=== PATIENT | male | born 1950 | race American Indian/Alaskan Native ===

== ENCOUNTER 2016-06-30 14:33 | Emergency (ER) | payer MEDICARE ==
[2016-06-30 17:17] LABS: Bilirubin,Urine NEG (Negative); Blood,Urine MOD (Negative); Ketones,Urine NEG (Negative); Leukocyte Esterase,Urine SM (Negative); Mucus,Urine FEW /HPF; Nitrite,Urine NEG (Negative); Protein,Urine <15 mg/dL mg/dL (Negative); Urobilinogen,Urine < 2.0 mg/dL (<2.0)
--- NOTE | 2016-06-30 17:59 | Emergency Department Report ---
ED Male HPI - General Chief complaint: Urogenital-Male Stated complaint: BP HIGH Time Seen by Provider: 06/30/16 17:20 Source: patient Mode of arrival: Ambulatory Limitations: No Limitations - History of Present Illness Initial comments: This is a 66-year-old male complaining of painful urination for 2 months. Patient now states he has flank pain. Nontoxic in appearance. Patient denies any blood in urine, discharge, any sores, or lesions. Patient is a class b truck driver. Denies any new sexual partners. Patient states normal urine odor. MD Complaint: dysuria Onset/Timin -: Gradual, month(s) Location: right flank, left flank Radiation: none Severity: mild Severity scale (0 -10): 4 Quality: aching Consistency: intermittent Improves with: other (patient unaware) Worsens with: other (it comes and goes unaware what makes it worse) denies other symptoms - Related Data Previous Rx's Medication Instructions Recorded Last Taken Type Phenazopyridine [Pyridium] 200 mg PO BID #15 tab 06/30/16 Unknown Rx Sulfamethoxazole/Trimethoprim 1 each PO BID #14 tablet 06/30/16 Unknown Rx [Bactrim DS TAB] Allergies Allergy/AdvReac Type Severity Reaction Status Date / Time No Known Allergies Allergy Unverified 06/30/16 15:37 ED Review of Systems ROS: Stated complaint: BP HIGH Other details as noted in HPI Comment: All other systems reviewed and negative Respiratory: no symptoms reported. denies: cough, orthopnea, shortness of breath, SOB with exertion, wheezing Cardiovascular: denies: chest pain, palpitations, edema, syncope Endocrine: no symptoms reported Gastrointestinal: denies: abdominal pain, nausea, vomiting, diarrhea, constipation Genitourinary: dysuria. denies: urgency, frequency, hematuria, discharge, testicular pain, testicular mass Musculoskeletal: as per HPI. denies: joint swelling, arthralgia, myalgia Skin: denies: rash, lesions Neurological: denies: headache, weakness, numbness ED Past Medical Hx - Past Medical History Previous Medical History?: Yes Hx Diabetes: Yes - Surgical History Past Surgical History?: No - Social History Smoking Status: Never Smoker Substance Use Type: Alcohol - Medications Home Medications: Home Medications Medication Instructions Recorded Confirmed Last Taken Type Phenazopyridine [Pyridium] 200 mg PO BID #15 tab 06/30/16 Unknown Rx Sulfamethoxazole/Trimethoprim 1 each PO BID #14 tablet 06/30/16 Unknown Rx [Bactrim DS TAB] ED Physical Exam - General Limitations: No Limitations General appearance: alert, in no apparent distress - Head Head exam: Present: atraumatic, normocephalic - Respiratory Respiratory exam: Present: normal lung sounds bilaterally. Absent: respiratory distress, wheezes, rales - Cardiovascular Cardiovascular Exam: Present: regular rate, normal rhythm. Absent: systolic murmur, diastolic murmur, rubs, gallop - GI/Abdominal GI/Abdominal exam: Present: soft, normal bowel sounds. Absent: distended, tenderness, rebound, rigid - exam: Present: normal inspection, other. Absent: testicular tenderness, urethral discharge, scrotal swelling External exam: Present: normal external exam. Absent: erythema, swelling, lesions, lacerations, ecchymosis, bleeding - Extremities Exam Extremities exam: Present: normal inspection, full ROM, normal capillary refill - Back Exam Back exam: Present: normal inspection, full ROM. Absent: tenderness, CVA tenderness (R), CVA tenderness (L), muscle spasm - Neurological Exam Neurological exam: Present: alert, oriented X3, normal gait ED Course Vital Signs 06/30/16 15:30 Temperature 97.9 F Pulse Rate 61 Respiratory 20 Rate Blood Pressure 181/94 O2 Sat by Pulse 98 Oximetry ED Medical Decision Making - Lab Data Result diagrams: 06/30/16 18:14 06/30/16 18:14 Lab Results 06/30/16 06/30/16 Range/Units 15:26 15:38 POC Glucose 93 (70-105) Urine Color Yellow (Yellow) Urine Turbidity Clear (Clear) Urine pH 5.0 (5.0-7.0) Ur Specific [place] 1.015 (1.003-1.030) Urine Protein <15 mg/dl (Negative) mg/dL Urine Glucose (UA) Neg (Negative) mg/dL Urine Ketones Neg (Negative) mg/dL Urine Blood Mod (Negative) Urine Nitrite Neg (Negative) Urine Bilirubin Neg (Negative) Urine Urobilinogen < 2.0 (<2.0) mg/dL Ur Leukocyte Esterase Sm (Negative) Urine WBC (Auto) 6.0 (0.0-6.0) /HPF Urine RBC (Auto) 4.0 (0.0-6.0) /HPF U Epithel Cells (Auto) 2.0 (0-13.0) /HPF Urine Mucus Few /HPF Vital Signs 06/30/16 15:30 Temperature 97.9 F Pulse Rate 61 Respiratory 20 Rate Blood Pressure 181/94 O2 Sat by Pulse 98 Oximetry Vital Signs 06/30/16 06/30/16 15:30 19:37 Temperature 97.9 F Pulse Rate 61 53 L Respiratory 20 17 Rate Blood Pressure 181/94 Blood Pressure 173/81 [Left] O2 Sat by Pulse 98 Oximetry - Medical Decision Making ED course: This is a 66-year-old male came in for dysuria for 2 months. Patient denies any blood, discharge, sores, lesions, cysts and new sexual partner, denies CVA tenderness. Patient does not seem toxic or ill appearance. 1-CT scan results from Dr. Warner Domingo shows no acute obstructive change. Intermerminate to exclude bladder wall thickening posteriorly vs. volume averaging of the prostate. 2- Ordered Clonidine 0.1 mg PO. 3- Sent home on Bactrim DS 4- Dr. Santamaria aware of patient and the plan/discharge 5- instructed the patient to see urologist in 2-3 days. 6-instructed the patient is increase fluid intake. 7-if symptoms change or worsening contact emergency room. 8-B/P rechecked at 173/81, improved. 9- instruct the patient to continue taking blood pressure medication and diabetes medication that was prescribed a primary care doctor. - Differential Diagnosis Nephrolithiasis, UTI Critical care attestation.: If time is entered above; I have spent that time in minutes in the direct care of this critically ill patient, excluding procedure time. ED Disposition Clinical Impression: UTI (urinary tract infection), Dysuria, Cystitis Disposition: DISCHARGED TO HOME OR SELFCARE Is pt being admited?: No Does the pt Need Aspirin: No Condition: Stable Instructions: Dysuria (ED), Urinary Tract Infection in Men (ED), Flank Pain (ED ) Additional Instructions: Please see urologist in 2-3 days. If symptoms change or worsen please come back to emergency room. Instructed the patient to please continue taking blood pressure medication. Prescriptions: Phenazopyridine [Pyridium] 200 mg PO BID #15 tab Sulfamethoxazole/Trimethoprim [Bactrim DS TAB] 1 each PO BID #14 tablet Referrals: PRIMARY CARE, [Primary Care Provider] - 2-3 Days [facility] [Outside] - 3-5 Days [facility] [Outside] - 3-5 Days STEFAN WHATLEY MD [Staff Physician] - 2-3 Days Forms: Work/School Release Form(ED)
[2016-06-30 18:40] LABS: Hematocrit 42.9 % (35.5-45.6); Mean Corpuscular HGB Conc 35 % (32-34); Mean Corpuscular Hemoglobin 33 pg (28-32); Mean Corpuscular Volume 94 fl (84-94); Platelet Count 242 K/mm3 (140-440); Red Blood Count 4.56 M/mm3 (3.65-5.03); Red Cell Distribution Width 13.6 % (13.2-15.2)
--- NOTE | 2016-06-30 18:58 | Cat Scan Report ---
FINAL REPORT PROCEDURE: CT ABDOMEN PELVIS WO CON TECHNIQUE: Computerized axial tomography of the abdomen and pelvis was performed without intravenous contrast. This study is performed without intravascular contrast material and its sensitivity for abdominal and pelvic pathology, including neoplasms, inflammation, abscess, free fluid, thrombosis, arterial dissection and infarction, is reduced compared with a contrast enhanced study. HISTORY: flank pain ? stone COMPARISON: No prior studies are available for comparison. FINDINGS: Visualized lower thorax: Lung base COPD. Liver: Normal size and attenuation. Spleen: Normal size and attenuation. Gallbladder and biliary system: Normal. Pancreas: Normal. Adrenals: Normal. Kidneys: Suspect tiny sub millimeter calculi left mid kidney coronal 110 and 106. Sub millimeter calcification right mid to lower kidney axial 86. No significant sized stones are definitive. No obstructive uropathy identified. GI tract: No oral contrast. Mild stool volume. Scattered diverticulosis. Normal caliber appendix. No definitive evidence of acute bowel disease on limited study without oral contrast. No specific evidence of acute diverticulitis left flank area.. Lymph nodes and mesentery: Normal. Vasculature: Calcified atherosclerosis. Bladder: Indeterminate to exclude bladder wall thickening posteriorly versus volume averaging of the prostate. Followup may be warranted.. Reproductive organs: Heterogeneous prostate gland with calcifications present. Prostate 4.6 x 3.9 centimeters.. Peritoneum: No free fluid. Musculoskeletal structures: No significant abnormality. Other: Moderate disc bulging L4-5 L5-S1. Moderate degenerative changes of the hips. 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 Sacroiliitis. Focal soft tissue thickening stranding right lower anterior abdomen may be injection site or focal cellulitis axial 145. No ring enhancing abscess seen. IMPRESSION: No acute obstructive change Details above Followup advised
[2016-06-30 19:00] LABS: Anion Gap 14 mmol/L; BUN/Creatinine Ratio 11.81; Blood Urea Nitrogen 13 mg/dL (9-20); Calcium 9.1 mg/dL (8.4-10.2); Carbon Dioxide 25 mmol/L (22-30); Chloride 98.2 mmol/L (98-107); Creatine Kinase 279 units/L (55-170); Glucose 130 mg/dL (75-100); Potassium 3.5 mmol/L (3.6-5.0); Sodium 134 mmol/L (137-145)
[2016-06-30] MEDS ORDERED: CATAPRES PO ONE (19:00)
[2016-06-30 19:38] VITALS: BP 173/81
== END 2016-06-30 20:08 | disposition home or self-care (01) ==
LOC: ED 14:33
DX: N39.0 Urinary tract infection, site not specified (principal); N30.90 Cystitis, unspecified without hematuria; E11.9 Type 2 diabetes mellitus without complications
CPT/HCPCS: 36415; 74176; 80048; 81001; 82550; 82962; 85027; 99284

== ENCOUNTER 2017-03-10 13:58 | Emergency (ER) | payer MEDICARE ==
--- NOTE | 2017-03-10 16:29 | Emergency Department Report ---
ED General Adult HPI - General Chief complaint: Upper Respiratory Infection Stated complaint: cold symptoms Time Seen by Provider: 03/10/17 16:16 Source: patient Mode of arrival: Ambulatory Limitations: No Limitations - History of Present Illness Initial comments: Chief complaint I think I have the flu Cough and cold with facial fullness with question of greenish rhinorrhea denied chest pain denies abdominal pain denies calf pain or swelling No body aches no fever no myalgias no stiff neck no headache Past medical history significant for diabetes and history of hypertension Social history he does not drug use Complete review of systems is otherwise negative review of systems no stiff neck no headache no focal neuro complaints no rash no photophobia he does have a sore throat was facial fullness with some greenish rhinorrhea no chest pain or shortness of breath pain or swelling physical exam Vital signs were stable blood pressure was 161/71 room air sat was normal he was afebrile and nontoxic in no acute distress HEENT throat had mild erythema without exudate no stridor Maxillary sinus tenderness Neck supple Chest clear station without retractions Cardiac was S1-S2 without murmur gallop or rub pulses equal bilaterally Abdomen soft nontender without rebound or guarding Extremities without close os edema and no Homans sign with good capillary refill ED course symptoms are consistent with sinusitis and bronchitis patient initially seemed to have some flulike symptoms but he S he has no myalgia he has no fever we will discharge with Lorene box with close outpatient follow-up Clinical impression is bronchitis #1 #2 sinusitis Discharge he is coming discharged in about excuse see his regular doctor in 2 days and return if new oralarming symptoms - Related Data Previous Rx's Medication Instructions Recorded Last Taken Type Phenazopyridine [Pyridium] 200 mg PO BID #15 tab 06/30/16 Unknown Rx ALBUTEROL Inhaler [ProAir HFA 1 puff IH QID PRN 7 Days inha 03/10/17 Unknown Rx Inhaler] Doxycycline [Vibramycin CAP] 100 mg PO Q12HR #14 capsule 03/10/17 Unknown Rx guaiFENesin/CODEINE [Robitussin AC] 5 ml PO QID PRN #120 oral.liqd 03/10/17 Unknown Rx Allergies Allergy/AdvReac Type Severity Reaction Status Date / Time No Known Allergies Allergy Unverified 06/30/16 15:37 ED Review of Systems ROS: Stated complaint: cold symptoms Other details as noted in HPI ED Past Medical Hx - Past Medical History Hx Hypertension: Yes Hx Diabetes: Yes - Social History Smoking Status: Never Smoker Substance Use Type: Alcohol - Medications Home Medications: Home Medications Medication Instructions Recorded Confirmed Last Taken Type Phenazopyridine [Pyridium] 200 mg PO BID #15 tab 06/30/16 Unknown Rx ALBUTEROL Inhaler [ProAir HFA 1 puff IH QID PRN 7 Days inha 03/10/17 Unknown Rx Inhaler] Doxycycline [Vibramycin CAP] 100 mg PO Q12HR #14 capsule 03/10/17 Unknown Rx guaiFENesin/CODEINE [Robitussin AC] 5 ml PO QID PRN #120 oral.liqd 03/10/17 Unknown Rx ED Physical Exam - General Limitations: No Limitations ED Course Vital Signs 03/10/17 14:24 Temperature 98.3 F Pulse Rate 64 Respiratory 22 Rate Blood Pressure 161/71 O2 Sat by Pulse 97 Oximetry Critical care attestation.: If time is entered above; I have spent that time in minutes in the direct care of this critically ill patient, excluding procedure time. ED Disposition Clinical Impression: Bronchitis, Sinusitis Disposition: DC-01 TO HOME OR SELFCARE Is pt being admited?: No Condition: Stable Instructions: Chronic Bronchitis (ED) Additional Instructions: sinusitis Prescriptions: ALBUTEROL Inhaler [ProAir HFA Inhaler] 1 puff IH QID PRN 7 Days inha PRN Reason: congestoin Doxycycline [Vibramycin CAP] 100 mg PO Q12HR #14 capsule guaiFENesin/CODEINE [Robitussin AC] 5 ml PO QID PRN #120 oral.liqd PRN Reason: cough Referrals: MINDY ZARATE MD [Primary Care Provider] - 3-5 Days Print Language: YAKUT
[2017-03-10 17:27] VITALS: BP 166/85
== END 2017-03-10 17:12 | disposition home or self-care (01) ==
LOC: ED 13:58
DX: J40 Bronchitis, not specified as acute or chronic (principal); J32.9 Chronic sinusitis, unspecified; I10 Essential (primary) hypertension; E11.9 Type 2 diabetes mellitus without complications
CPT/HCPCS: 99282

== ENCOUNTER 2017-03-13 15:18 | Emergency (ER) | payer MEDICARE ==
[2017-03-13 15:25] VITALS: BP 142/68
[2017-03-13] MEDS ORDERED: TORADOL IM ONE (17:59)
--- NOTE | 2017-03-13 18:24 | Emergency Department Report ---
ED Headache HPI - General Chief Complaint: Headache Stated Complaint: HEADACHE Time Seen by Provider: 03/13/17 17:26 - History of Present Illness Initial Comments: This is a 67-year-old male nontoxic, well nourished in appearance, no acute signs of distress presents to the ED with c/o of worsening headache. Patient stated he was here a couple of days ago and was diagnosed with sinusitis and received Doxy with no relief. Patient stated headache has not improved and is getting worse. Patient denies any trauma to the region. Patient describes headache in the frontal sinus region. Patient denies worst headache or thunderclap headache. Patient describes headache as gradual onset. Patient denies any nausea, vomiting, chest pain, shortness of breathe, fever, chills, stiff neck, back pain, abdominal pain, numbness or tingling. Denies pain radiation. Patient denies any allergies. PMH includes HTN and DM. Timing/Duration: increasing Quality: mild Head Injury Location: frontal Recent Head Trauma: no recent headache/trauma Associated Symptoms: denies symptoms. denies: confusion, fatigue, facial pain, fever/chills, flushing, loss of consciousness, nausea/vomiting, nasal congestion , nasal drainage, numbness in legs/feet, rash, seizures, sinus infection, stiff neck, vision changes, weakness Allergies/Adverse Reactions: Allergies No Known Allergies Allergy (Unverified 06/30/16 15:37) Home Medications: Ambulatory Orders Phenazopyridine [Pyridium] 200 mg PO BID #15 tab 06/30/16 ALBUTEROL Inhaler [ProAir HFA Inhaler] 1 puff IH QID PRN 7 Days inha 03/10/17 Doxycycline [Vibramycin CAP] 100 mg PO Q12HR #14 capsule 03/10/17 guaiFENesin/CODEINE [Robitussin AC] 5 ml PO QID PRN #120 oral.liqd 03/10/17 Amoxicillin/K Clav Tab [Augmentin 875 mg] 1 tab PO Q12HR #20 tab 03/13/17 Butalb/Acetamin/Caff 50-325-40 [Fioricet] 1 tab PO Q6HR PRN #30 tab 03/13/17 ED Review of Systems ROS: Stated complaint: HEADACHE Other details as noted in HPI Constitutional: denies: chills, fever Eyes: denies: eye pain, eye discharge, vision change ENT: denies: ear pain, throat pain Respiratory: denies: cough, shortness of breath, wheezing Cardiovascular: denies: chest pain, palpitations Endocrine: no symptoms reported Gastrointestinal: denies: abdominal pain, nausea, diarrhea Genitourinary: denies: urgency, dysuria Musculoskeletal: denies: back pain, joint swelling, arthralgia Skin: denies: rash, lesions Neurological: headache. denies: weakness, paresthesias Psychiatric: denies: anxiety, depression Hematological/Lymphatic: denies: easy bleeding, easy bruising ED Past Medical Hx - Past Medical History Previous Medical History?: Yes Hx Hypertension: Yes Hx Diabetes: Yes - Surgical History Past Surgical History?: No - Social History Smoking Status: Former Smoker Substance Use Type: Alcohol, Prescribed - Medications Home Medications: Home Medications Medication Instructions Recorded Confirmed Last Taken Type Phenazopyridine [Pyridium] 200 mg PO BID #15 tab 06/30/16 Unknown Rx ALBUTEROL Inhaler [ProAir HFA 1 puff IH QID PRN 7 Days inha 03/10/17 Unknown Rx Inhaler] Doxycycline [Vibramycin CAP] 100 mg PO Q12HR #14 capsule 03/10/17 Unknown Rx guaiFENesin/CODEINE [Robitussin AC] 5 ml PO QID PRN #120 oral.liqd 03/10/17 Unknown Rx Amoxicillin/K Clav Tab [Augmentin 1 tab PO Q12HR #20 tab 03/13/17 Unknown Rx 875 mg] Butalb/Acetamin/Caff 50-325-40 1 tab PO Q6HR PRN #30 tab 03/13/17 Unknown Rx [Fioricet] ED Physical Exam - General Limitations: No Limitations General appearance: alert, in no apparent distress - Head Head exam: Present: atraumatic, normocephalic, normal inspection - Eye Eye exam: Present: normal appearance, PERRL, EOMI. Absent: scleral icterus, conjunctival injection, nystagmus, periorbital swelling, periorbital tenderness Pupils: Present: normal accommodation - ENT ENT exam: Present: normal exam, normal orophraynx, mucous membranes moist, TM's normal bilaterally, normal external ear exam - Neck Neck exam: Present: normal inspection, full ROM. Absent: tenderness, meningismus, lymphadenopathy, thyromegaly - Respiratory Respiratory exam: Present: normal lung sounds bilaterally. Absent: respiratory distress, wheezes, rales, rhonchi, stridor, chest wall tenderness, accessory muscle use, decreased breath sounds, prolonged expiratory - Cardiovascular Cardiovascular Exam: Present: regular rate, normal rhythm, normal heart sounds. Absent: bradycardia, tachycardia, irregular rhythm, systolic murmur, diastolic murmur, rubs, gallop - GI/Abdominal GI/Abdominal exam: Present: soft, normal bowel sounds. Absent: distended, tenderness, guarding, rebound, rigid, diminished bowel sounds - Rectal Rectal exam: Present: deferred - Extremities Exam Extremities exam: Present: normal inspection, full ROM, normal capillary refill. Absent: tenderness, pedal edema, joint swelling, calf tenderness - Back Exam Back exam: Present: normal inspection, full ROM. Absent: tenderness, CVA tenderness (R), CVA tenderness (L), muscle spasm, paraspinal tenderness, vertebral tenderness, rash noted - Neurological Exam Neurological exam: Present: alert, oriented X3, CN II-XII intact, normal gait, reflexes normal - Expanded Neurological Exam Expanded Patient oriented to: Present: person, place, time Cranial nerves: EOM's Intact: Normal, Gag Reflex: Normal, Tongue Deviation: Normal, Nystagmus: Normal, Facial Sensation: Normal, Facial Palsy with Forehead Movement: Normal, Facial Palsy without Forehead Movement: Normal Cerebellar function: Finger to Nose: Normal, Heel to [place]: Normal, Romberg: Normal Upper motor neuron: Seferino Neglect: Normal, Pronator Drift: Normal, Babinski Sign : Normal, Sensory Extinction: Normal Sensory exam: Upper Extremity Light Touch: Normal, Upper Extremity Pin Prick: Normal, Upper Extremity Temperature: Normal, UE 2 Point Discrimination: Normal, Lower Extremity Light Touch: Normal, Lower Extremity Pin Prick: Normal, Lower Extremity Temperature: Normal, LE 2 Point Discrimination: Normal Motor strength exam: RUE: 5, LUE: 5, RLE: 5, LLE: 5 DTR: bicep (R): 2+, bicep (L): 2+, tricep (R): 2+, tricep (L): 2+, knee (R): 2+ , knee (L): 2+, ankle (R): 2+, ankle (L): 2+ Best Eye Response (Jordy): (4) open spontaneously Best Motor Response (Jordy): (6) obeys commands Best Verbal Response ([place]): (5) oriented [place] Total: 15 - Psychiatric Psychiatric exam: Present: normal affect, normal mood - Skin Skin exam: Present: warm, dry, intact, normal color. Absent: rash ED Course Vital Signs 03/13/17 03/13/17 03/13/17 15:22 17:42 18:07 Temperature 98.1 F Pulse Rate 82 Respiratory 18 18 18 Rate Blood Pressure 142/68 O2 Sat by Pulse 97 Oximetry - Reevaluation(s) Reevaluation #1: 03/13/17 18:29 Patient is speaking in full sentences with no signs of distress noted. ED Medical Decision Making - Medical Decision Making This is a 67-year-old male that presents with sinusitis headache. Patient is stable and was examined by me. Due to patient stating symptoms of headache is worsening, a CT of head/brain has been obtained and dictated by radiologist with normal exam. Patient received Toradol in the ED which patient stated symptoms is improving and subsided. Patient was instructed to discontinue Doxy and patient was prescribed Augmentin. Patient received Fioricet at discharge. Patient was instructed Follow-up with a primary care doctor in 3-5 days or if symptoms worsen and continue return to emergency room as soon as possible. At time time of discharge, the patient does not seem toxic or ill in appearance. No acute signs of distress noted. Patient agrees to discharge treatment plan of care. No further questions noted by the patient. Critical care attestation.: If time is entered above; I have spent that time in minutes in the direct care of this critically ill patient, excluding procedure time. ED Disposition Clinical Impression: Sinusitis Qualifiers: Sinusitis location: frontal Chronicity: unspecified Qualified Code(s): J32.1 - Chronic frontal sinusitis Headache Qualifiers: Headache type: unspecified Headache chronicity pattern: unspecified pattern Intractability: not intractable Qualified Code(s): R51 - Headache Disposition: DC-01 TO HOME OR SELFCARE Is pt being admited?: No Does the pt Need Aspirin: No Condition: Stable Instructions: Butalbital/Aspirin/Caffeine (By mouth), Amoxicillin/Clavulanate Potassium (By mouth), Sinusitis (ED), Acute Headache (ED) Additional Instructions: Follow-up with a primary care doctor in 3-5 days or if symptoms worsen and continue return to emergency room as soon as possible. Discontinue taking doxycycline, and start taking Augmentin as prescribed. Prescriptions: Amoxicillin/K Clav Tab [Augmentin 875 mg] 1 tab PO Q12HR #20 tab Butalb/Acetamin/Caff 50-325-40 [Fioricet] 1 tab PO Q6HR PRN #30 tab PRN Reason: Headache Referrals: PRIMARY CAREMD [Primary Care Provider] - 3-5 Days MAYRA BEDOYA MD [Staff Physician] - 3-5 Days [facility] [Outside] - 3-5 Days [facility] [Outside] - 3-5 Days Forms: Work/School Release Form(ED)
--- NOTE | 2017-03-13 19:36 | Cat Scan Report ---
FINAL REPORT EXAM: CT HEAD/BRAIN WO CON HISTORY: headache TECHNIQUE: CT of the head was performed without intravenous contrast. PRIORS: None. FINDINGS: The ventricles are normal in shape and position. The ventricles are nondilated. No intracranial hemorrhage, mass, mass effect, midline shift or evidence of acute ischemic infarct. The basilar cisterns are patent. Mucosal thickening of the maxillary and ethmoid sinuses is likely congestive or inflammatory. The extracranial soft tissues demonstrate no abnormality. The calvarium is intact. An old right medial orbital wall deformity is seen. The mastoid air cells are clear. IMPRESSION: 1. No acute intracranial abnormality. 2. Mucosal thickening of the maxillary and ethmoid sinuses is likely congestive or inflammatory.
== END 2017-03-13 19:50 | disposition home or self-care (01) ==
LOC: ED 15:18
DX: J32.1 Chronic frontal sinusitis (principal); I10 Essential (primary) hypertension; E11.9 Type 2 diabetes mellitus without complications; Z87.891 Personal history of nicotine dependence
CPT/HCPCS: 70450; 96372; 99283; J1885

== ENCOUNTER 2017-05-25 16:48 | Emergency (ER) | payer MEDICARE ==
[2017-05-25 17:05] VITALS: BP 138/55
--- NOTE | 2017-05-25 19:51 | Emergency Department Report ---
Blank Doc - Documentation Documentation: Patient is a 67-year-old [place] male past history of diabetes hypertension is complaining of right hip pain. Patient states he gets a sharp pain in his hip 7 the lab when he walks. Patient denies any trauma. Patient will have x-ray of the hip rule out joint effusiOn
[2017-05-25] MEDS ORDERED: TORADOL IM ONE (20:02)
--- NOTE | 2017-05-25 21:11 | Emergency Department Report ---
ED Extremity Problem HPI - General Chief complaint: Extremity Problem,Nontraumatic Stated complaint: RIGHT HIP PAIN Time Seen by Provider: 05/25/17 19:49 Source: patient Mode of arrival: Ambulatory Limitations: No Limitations - History of Present Illness Initial comments: Patient is a 67-year-old -Swedish male whose presenting with right hip pain for the past several days. Patient denies any trauma. Patient states he has difficulty walking and is walking with a left. Patient states that it's worse when he is standing and when he is trying to sit up better with rest. Patient denies any cough cold congestion and fevers chills nausea vomiting diarrhea. MD Complaint: extremity pain Location: right, lower extremity Severity scale (0 -10): 4 Quality: aching Consistency: constant - Related Data Previous Rx's Medication Instructions Recorded Last Taken Type Phenazopyridine [Pyridium] 200 mg PO BID #15 tab 06/30/16 Unknown Rx ALBUTEROL Inhaler [ProAir HFA 1 puff IH QID PRN 7 Days inha 03/10/17 Unknown Rx Inhaler] Doxycycline [Vibramycin CAP] 100 mg PO Q12HR #14 capsule 03/10/17 Unknown Rx guaiFENesin/CODEINE [Robitussin AC] 5 ml PO QID PRN #120 oral.liqd 03/10/17 Unknown Rx Amoxicillin/K Clav Tab [Augmentin 1 tab PO Q12HR #20 tab 03/13/17 Unknown Rx 875 mg] Butalb/Acetamin/Caff 50-325-40 1 tab PO Q6HR PRN #30 tab 03/13/17 Unknown Rx [Fioricet] HYDROcodone/APAP 5-325 [[place] 1 each PO Q6HR PRN #12 tablet 05/25/17 Unknown Rx 5/325] Ibuprofen [Motrin] 600 mg PO Q8H PRN #15 tablet 05/25/17 Unknown Rx Allergies Allergy/AdvReac Type Severity Reaction Status Date / Time No Known Allergies Allergy Unverified 06/30/16 15:37 ED Review of Systems ROS: Stated complaint: RIGHT HIP PAIN Other details as noted in HPI Comment: All other systems reviewed and negative ED Past Medical Hx - Past Medical History Hx Hypertension: Yes Hx Diabetes: Yes - Surgical History Past Surgical History?: No - Social History Smoking Status: Never Smoker Substance Use Type: None - Medications Home Medications: Home Medications Medication Instructions Recorded Confirmed Last Taken Type Phenazopyridine [Pyridium] 200 mg PO BID #15 tab 06/30/16 Unknown Rx ALBUTEROL Inhaler [ProAir HFA 1 puff IH QID PRN 7 Days inha 03/10/17 Unknown Rx Inhaler] Doxycycline [Vibramycin CAP] 100 mg PO Q12HR #14 capsule 03/10/17 Unknown Rx guaiFENesin/CODEINE [Robitussin AC] 5 ml PO QID PRN #120 oral.liqd 03/10/17 Unknown Rx Amoxicillin/K Clav Tab [Augmentin 1 tab PO Q12HR #20 tab 03/13/17 Unknown Rx 875 mg] Butalb/Acetamin/Caff 50-325-40 1 tab PO Q6HR PRN #30 tab 03/13/17 Unknown Rx [Fioricet] HYDROcodone/APAP 5-325 [[place] 1 each PO Q6HR PRN #12 tablet 05/25/17 Unknown Rx 5/325] Ibuprofen [Motrin] 600 mg PO Q8H PRN #15 tablet 05/25/17 Unknown Rx ED Physical Exam - General Limitations: No Limitations General appearance: alert, in no apparent distress - Head Head exam: Present: atraumatic, normocephalic - Eye Eye exam: Present: normal appearance - ENT ENT exam: Present: mucous membranes moist - Neck Neck exam: Present: normal inspection - Respiratory Respiratory exam: Present: normal lung sounds bilaterally. Absent: respiratory distress, wheezes, rales - Cardiovascular Cardiovascular Exam: Present: regular rate, normal rhythm. Absent: systolic murmur, diastolic murmur, rubs, gallop - GI/Abdominal GI/Abdominal exam: Present: soft, normal bowel sounds. Absent: distended, tenderness - Rectal Rectal exam: Present: deferred - Extremities Exam Extremities exam: Present: normal inspection, full ROM, tenderness (mild tenderness in palpation of the right hip) - Back Exam Back exam: Present: normal inspection - Neurological Exam Neurological exam: Present: alert, oriented X3 - Psychiatric Psychiatric exam: Present: normal affect, normal mood - Skin Skin exam: Present: warm, dry, intact, normal color. Absent: rash ED Course Vital Signs 05/25/17 05/25/17 05/25/17 17:01 20:07 20:33 Temperature 97.8 F Pulse Rate 55 L Respiratory 18 18 18 Rate Blood Pressure 138/55 O2 Sat by Pulse 99 Oximetry ED Medical Decision Making - Radiology Data Radiology results: image reviewed interpreted by me: Patient does not have any significant hip joint effusion however he does have some decreased joint space consistent with degenerative changes. No no acute fractures seen. - Medical Decision Making Is a 67-year-old black male who is presenting with right hip pain. Patient's x- rays consistent with arthritis patient be given pain meds orthopedic follow-up and will be discharged home at this time. Critical care attestation.: If time is entered above; I have spent that time in minutes in the direct care of this critically ill patient, excluding procedure time. ED Disposition Clinical Impression: Hip arthritis Disposition: TO HOME OR SELFCARE Is pt being admited?: No Does the pt Need Aspirin: No Condition: Stable Instructions: Osteoarthritis (ED) Prescriptions: HYDROcodone/APAP 5-325 [[place] 5/325] 1 each PO Q6HR PRN #12 tablet PRN Reason: Pain Ibuprofen [Motrin] 600 mg PO Q8H PRN #15 tablet PRN Reason: Pain Referrals: GLENN LOPEZ MD [Staff Physician] - 3-5 Days
--- NOTE | 2017-05-25 21:55 | XRay Report ---
FINAL REPORT PROCEDURE: XR HIP 2-3V RT TECHNIQUE: RIGHT hip radiographs, 2 views each, including AP view of the pelvis. HISTORY: hip pain with weight bearing COMPARISON: No prior studies are available for comparison. FINDINGS: Fracture (s) and/or Dislocation(s): None . Joint space(s): Joint space narrowing. Soft tissues: Vascular calcifications Bone mineralization: Normal. Foreign bodies: None. IMPRESSION: Degenerative change. No fracture seen.
== END 2017-05-25 21:19 | disposition home or self-care (01) ==
LOC: ED 16:48
DX: M25.551 Pain in right hip (principal); E11.9 Type 2 diabetes mellitus without complications; I10 Essential (primary) hypertension
CPT/HCPCS: 73502; 96372; 99283; J1885

== ENCOUNTER 2020-11-14 09:46 | Emergency (ER) | payer MEDICARE ==
[2020-11-14 12:41] VITALS: BP 148/77
--- NOTE | 2020-11-14 13:42 | Emergency Department Report ---
ED Headache HPI - General Chief Complaint: Headache Stated Complaint: HEADACHE Source: patient - History of Present Illness Initial Comments: 70-year-old -[place] male presents to the emergency room for intermittent headaches that is located at the temporal. Patient denies any maximal intensity. Patient denies any head trauma. Patient denies any worst headache of his life. Patient denies any nausea no vomiting no change of vision no chest pain no shortness of breath or dizziness. Patient reports he is vaccinated and his last Covid test was in May. He states he was able to drive here to be evaluated. His primary care provider is Dr. Joelle Coe. Has a past medical history of hypertension diabetes. Last took Tylenol a few days ago. Has had in eye exam in June 2020. Timing/Duration: 1 week Quality: achy Head Injury Location: temporal Recent Head Trauma: no recent headache/trauma Modifying Factors: worse with: exposure to light, movement Associated Symptoms: denies: confusion, fatigue, facial pain, fever/chills, nausea/vomiting, nasal congestion, nasal drainage, seizures, sinus infection, stiff neck, vision changes Allergies/Adverse Reactions: Allergies No Known Allergies Allergy (Unverified 06/30/16 15:37) Home Medications: Ambulatory Orders Phenazopyridine [Pyridium] 200 mg PO BID #15 tab 06/30/16 Albuterol Mdi (or & Nicu Only) [ProAir HFA Inhaler] 1 puff IH QID PRN 7 Days inha 03/10/17 DOXYCYCLINE Hyclate [Vibramycin CAP] 100 mg PO Q12HR #14 capsule 03/10/17 guaiFENesin/CODEINE [Robitussin AC] 5 ml PO QID PRN #120 oral.liqd 03/10/17 Amoxicillin/K Clav Tab [Augmentin 875 mg] 1 tab PO Q12HR #20 tab 03/13/17 Butalb/Acetamin/Caff 50-325-40 [Fioricet] 1 tab PO Q6HR PRN #30 tab 03/13/17 HYDROcodone/APAP 5-325 [[place] 5/325] 1 each PO Q6HR PRN #12 tablet 05/25/17 Ibuprofen [Motrin] 600 mg PO Q8H PRN #15 tablet 05/25/17 ED Review of Systems ROS: Stated complaint: HEADACHE Other details as noted in HPI Comment: All other systems reviewed and negative ED Past Medical Hx - Past Medical History Previous Medical History?: Yes Hx Hypertension: Yes Hx Diabetes: Yes - Surgical History Past Surgical History?: No - Social History Smoking Status: Never Smoker Substance Use Type: None - Medications Home Medications: Home Medications Medication Instructions Recorded Confirmed Last Taken Type Phenazopyridine [Pyridium] 200 mg PO BID #15 tab 06/30/16 Unknown Rx Albuterol Mdi (or & Nicu Only) 1 puff IH QID PRN 7 Days inha 03/10/17 Unknown Rx [ProAir HFA Inhaler] DOXYCYCLINE Hyclate [Vibramycin 100 mg PO Q12HR #14 capsule 03/10/17 Unknown Rx CAP] guaiFENesin/CODEINE [Robitussin AC] 5 ml PO QID PRN #120 oral.liqd 03/10/17 Unknown Rx Amoxicillin/K Clav Tab [Augmentin 1 tab PO Q12HR #20 tab 03/13/17 Unknown Rx 875 mg] Butalb/Acetamin/Caff 50-325-40 1 tab PO Q6HR PRN #30 tab 03/13/17 Unknown Rx [Fioricet] HYDROcodone/APAP 5-325 [[place] 1 each PO Q6HR PRN #12 tablet 05/25/17 Unknown Rx 5/325] Ibuprofen [Motrin] 600 mg PO Q8H PRN #15 tablet 05/25/17 Unknown Rx ED Physical Exam - General Limitations: No Limitations General appearance: alert, in no apparent distress - Head Head exam: Present: atraumatic, normocephalic - Eye Eye exam: Present: normal appearance - ENT ENT exam: Present: mucous membranes moist - Neck Neck exam: Present: normal inspection - Respiratory Respiratory exam: Present: normal lung sounds bilaterally. Absent: respiratory distress - Cardiovascular Cardiovascular Exam: Present: regular rate, normal rhythm. Absent: systolic murmur, diastolic murmur, rubs, gallop - GI/Abdominal GI/Abdominal exam: Present: soft, normal bowel sounds - Rectal Rectal exam: Present: deferred - Extremities Exam Extremities exam: Present: normal inspection - Back Exam Back exam: Present: normal inspection - Neurological Exam Neurological exam: Present: alert, oriented X3, normal gait - Expanded Neurological Exam Expanded Patient oriented to: Present: person, place, time Cranial nerves: EOM's Intact: Normal, Gag Reflex: Normal, Tongue Deviation: Normal, Nystagmus: Normal, Facial Sensation: Normal, Facial Palsy with Forehead Movement: Normal, Facial Palsy without Forehead Movement: Normal Cerebellar function: Finger to Nose: Normal, Heel to [place]: Normal, Romberg: Normal Upper motor neuron: Seferino Neglect: Normal, Pronator Drift: Normal, Babinski Sign: Normal, Sensory Extinction: Normal - Psychiatric Psychiatric exam: Present: normal affect, normal mood - Skin Skin exam: Present: warm, dry, intact, normal color. Absent: rash ED Course Vital Signs 11/14/20 12:39 Temperature 97.9 F Pulse Rate 59 L Respiratory 18 Rate Blood Pressure 148/77 O2 Sat by Pulse 96 Oximetry ED Medical Decision Making - Medical Decision Making 70-year-old -[place] male presents to the emergency room for i ntermittent headaches that is located at the temporal. Patient denies any maximal intensity. Patient denies any head trauma. Patient denies any worst headache of his life. Patient denies any nausea no vomiting no change of vision no chest pain no shortness of breath or dizziness. Patient reports he is vaccinated and his last Covid test was in May. He states he was able to drive here to be evaluated. His primary care provider is Dr. Joelle Coe. Has a past medical history of hypertension diabetes. Last took Tylenol a few days ago. Patient has a complete intact neuro examination. Discussed with patient he can take ibuprofen or Tylenol for his headache increase his fluid intake. Discussed with patient he can get checked for Covid. And follow-up with his primary care provider. Critical care attestation.: If time is entered above; I have spent that time in minutes in the direct care of this critically ill patient, excluding procedure time. ED Disposition Clinical Impression: Headache Disposition: HOME / SELF CARE / HOMELESS Is pt being admited?: No Does the pt Need Aspirin: No Condition: Stable Additional Instructions: Increase your fluid intake take Tylenol or ibuprofen or even Aleve for your headache. Follow-up with your primary care provider in the next 2 to 3 days. I do recommend Covid testing. Even being unvaccinated can have a positive Covid test. Referrals: PRIMARY CARE, [Primary Care Provider] - 3-5 Days Joelle Layton [Other] - 3-5 Days Forms: Work/School Release Form(ED)
== END 2020-11-14 13:35 | disposition home or self-care (01) ==
LOC: ED 09:46
DX: R51.9 Headache, unspecified (principal); E11.8 Type 2 diabetes mellitus with unspecified complications; I10 Essential (primary) hypertension
CPT/HCPCS: 99281